=== PATIENT | male | born 1965 ===

== ENCOUNTER 2021-03-28 10:14 | Outpatient (NON) | payer MEDICARE, SELFPAY ==
[2021-03-28 11:42] LABS: Vancomycin Trough 17.1 ug/mL (10.0-15.0)
== END 2021-03-28 10:15 | disposition home or self-care (01) ==
LOC: CHSLAB 10:22
PROVIDERS: Visit Provider Internal Medicine
DX: M00.849 Arthritis due to other bacteria, unspecified hand (principal)
CPT/HCPCS: 36415; 80202